=== PATIENT | male | born 1940 | race Caucasian/White ===

== ENCOUNTER → 2019-10-21 | Outpatient (CLI) | payer OTHER ==
[~2019-10-21] MED LIST: AMLODIPINE BESY10 MG PO; CALCIUM500 MG PO; COZAAR100 MG PO; FLONASE 0.05%50 MCG NARES; HYDROCHLOROTHIA25 M2 PO; MELATONIN10 M3 PO; OMEGA 3 1,0001 EACH PO; POTASSIUM99 M1 PO; TRAMADOL 50 MG50 MG PO; VITAMIN D3100 MCG PO
== END ==
LOC: LAB 12:02
PROVIDERS: ATTEND Student in an Organized Health Care Education/Training Program
DX: Z01.812 Encounter for preprocedural laboratory examination (principal); Z11.59 Encounter for screening for other viral diseases

== ENCOUNTER 2019-10-26 06:55 | Inpatient (IN) | payer OTHER ==
[2019-10-20 11:58] LABS: HEMATOCRIT 45.2 % (42.0-52.0); HEMOGLOBIN 15.2 gm/dL (14.0-18.0); MCH 29.6 pg (26.0-34.0); MCHC 33.6 g/dL (28.0-37.0); MCV 88.3 fL (80.0-100.0); RBC 5.12 mil/uL (4.50-6.00)
[2019-10-20 11:59] LABS: URINE BILIRUBIN NEGATIVE (Negative); URINE BLOOD NEGATIVE (Negative); URINE CLARITY CLEAR; URINE COLOR YELLOW; URINE GLUCOSE-RANDOM* NEGATIVE (Negative); URINE KETONES NEGATIVE (Negative); URINE LEUKOCYTES-REFLEX NEGATIVE (Negative); URINE NITRITE-REFLEX NEGATIVE (Negative); URINE PROTEIN (DIPSTICK) NEGATIVE (Negative); URINE UROBILINOGEN 0.2 E.U./dl (0.2-1.0)
[2019-10-20 12:13] LABS: ALBUMIN 4.2 g/dL (3.4-5.0); CALCIUM 9.3 mg/dL (8.5-10.1); CREATININE 1.3 mg/dL (0.7-1.3); POTASSIUM 4.1 mmol/L (3.5-5.1)
[2019-10-20 12:20] LABS: PROTIME 10.3 Seconds (9.3-11.4)
[~2019-10-26] VITALS: Ht 172.7 cm; Wt 97.1 kg
[2019-10-26 08:01] VITALS: BP 189/74
--- NOTE | 2019-10-26 14:42 | NUR ---
PATIENT ADMITTED FROM OR WITH RIGHT TOTAL KNEE REPLACEMENT, IGOR DRESSING, SCD'S, THIGH HIGH BEKA HOSE, ICE PACK TO RIGHT HIP AREA. PATIENT DENIES NAUSEA, REGULAR DIET ORDERED FOR LUNCH. C/O PAIN WITH RIGHT HIP AREA, MORPHINE 2 MG IV GIVEN, 12/18. PATIENT HAS LEFT FOREARM IV IN PLACE, PATIENT STARTED ON IV FLUIDS AT 100CC/HR. O2 AT 2 LITERS/NC IN PLACE, PAGTIETN RECEIVED 1 PRN BREATHING TREATMENT ORDERED PER DR. ZAIDI. ADMISSION DONE AND COMPLETED. REPORT GIVEN TO CARMEN/MELYSSA.
[2019-10-26 19:26] VITALS: BP 162/71
--- NOTE | 2019-10-27 02:37 | NUR ---
ASSUMED PT CARE AT 1900. PT IS A&OX4. REPORTING SEVERE PAIN. IV HAD GONE BAD SO WAS UNABLE TO GIVE THE MORPHINE RIGHT AWAY. PT REQUESTING THE BS FOR A BM, PAIN WAS UNBEARABLE, PT WAS DIZZY AND FELT FAINT. GOT HIM BACK IN BED, A NEW LINE WAS STARTED AND MORPHINE WAS GIVEN. PT ABLE TO RELAX AFTER TWO DOSES OF PAIN MEDS. RIGHT HIP DRESSING HAS SOME DRIED BLOOD. HEMOVAC OUTPUT DECREASING. ICE PACK IN PLACE. REQUESTING A BREAK FROM THE SCDS DUE TO THEM INTURRUPTING SLEEP. ATTEMPTING TO WEAN OFF OF O2. GOOD URINE OUTPUT W/ URINAL. PT HAS BEEN HAVING SOME DIFFICULTY SWALLOWING, HE STATES HIS THROAT IS SORE AND CAUSING THIS TROUBLE. GIVEN SOME ICE CREAM AND WARM TEA. THIS NURSE CRUSHED HIS PAIN PILL AND GAVE IT WITH APPLESAUCE. HAS NOT SLEPT MUCH ASIDE FROM OCCASIONALLY DOZING OFF. WILL CONTINUE TO MONITOR.
[2019-10-27 03:42] VITALS: BP 159/66
[2019-10-27 05:14] LABS: ABSOLUTE NEUTROPHILS 9.8 thou/uL (1.4-8.2); HEMATOCRIT 38.9 % (42.0-52.0); HEMOGLOBIN 12.9 gm/dL (14.0-18.0); LYMPHOCYTES 4.7 % (24.0-44.0); MCH 29.4 pg (26.0-34.0); MCHC 33.2 g/dL (28.0-37.0); MCV 88.5 fL (80.0-100.0); MONOCYTES 6.8 % (1.0-8.0); PLATELET COUNT 182 thou/uL (150-400); POLYS 88.5 % (36.0-66.0); RBC 4.39 mil/uL (4.50-6.00); RDW 13.8 % (10.5-14.5); WBC 11.1 thou/uL (4.0-11.0)
[2019-10-27 05:24] LABS: CALCIUM 8.6 mg/dL (8.5-10.1); CREATININE 1.1 mg/dL (0.7-1.3); MAGNESIUM 1.9 mg/dL (1.8-2.4); POTASSIUM 4.4 mmol/L (3.5-5.1)
[2019-10-27 07:20] VITALS: BP 158/70
[2019-10-27] MEDS ORDERED: COLACE100 MG PO (07:55)
[2019-10-27] MEDS ORDERED: MIRALAX17 GM PO (07:55)
[2019-10-27] MEDS ORDERED: XARELTO10 MG PO (07:55)
--- NOTE | 2019-10-27 08:17 | O ---
[facility] [place] [address] OPERATIVE REPORT Name: YAMILE RANGEL Room #: 439-P ADM IN M.R.#: [id number] Admission: 10/26/19 Attend Phys: Rayray Corrales MD Discharge: Date of : 42 Report #: [id number] THIS REPORT FOR: cc: TANVI - Family physician unknown TANVI - Family physician unknown Rayray Corrales MD ~ CC: Rayray TINAJERO unknown DATE OF SERVICE: 10/26/2019 PREOPERATIVE DIAGNOSIS: End-stage degenerative arthritis, right hip. POSTOPERATIVE DIAGNOSIS: End-stage degenerative arthritis, right hip. PROCEDURE: Right total hip arthroplasty. SURGEON: Rayray Corrales MD INDICATIONS: This 78-year-old gentleman is generally healthy, active and independent living with his at home. He notes progressive right hip pain with limited range of motion. He is advance to a cane or walker and has rather marked ongoing hip pain. Clinical exam and x-rays confirm moderately severe degenerative change with some flattening of the head and some cystic changes. The patient has decided to go ahead with right total hip arthroplasty. DESCRIPTION OF PROCEDURE: The patient was taken to the operating room where he was placed under general anesthesia. Prophylactic intravenous antibiotics were administered. He was turned to the left lateral decubitus position. The right hip, thigh and leg were meticulously prepped and draped. A slightly curving posterolateral skin incision was made centered over the greater trochanter. This was carried through fascia and muscle layers to expose the posterior aspect of the hip joint. The short external rotators and capsule were taken down and preserved and tagged with several #1 FiberWire sutures. The hip was dislocated posteriorly and marked degenerative change on the femoral head and acetabulum was noted. A femoral neck osteotomy was performed and the canal was prepared with reamers and hand broaches. The Johnson and Nephew hip system was utilized, a Synergy size 14 high offset stem seemed to fit most appropriately. The calcar was trimmed down to an appropriate level. The trial was removed and the acetabulum was visualized. The acetabulum was sequentially reamed, gradually advancing to a 50 mm reamer. A Johnson and Nephew size 50 StikTite shell with three holes was applied. This was inserted in alignment with his true acetabulum, placing this at about 45 degrees off vertical and 20 degrees of anteversion. It was impacted in place and seated nicely and appeared to be secure. In addition, 2 cancellous screws were placed through the apical holes engaging good periacetabular bone with excellent purchase adding to it [address] [address] OPERATIVE REPORT Name: YAMILE RANGEL Room #: 439-[facility] IN M.R.#: [id number] Admission: 10/26/19 Attend Phys: Rayray Corrales MD Discharge: Date of : 42 Report #: [id number] stability. A 32 mm liner was then inserted, positioning the 20-degree elevated rim at about the 9 o'clock posterior position. It also seated nicely and appeared to be secure. A trial reduction was performed and the size 14 stem with a high offset neck angle and a +4 mm neck length seemed to fit quite nicely. This resulted in satisfactory alignment, range of motion, stability and leg length. The trial was removed and the permanent Johnson and Nephew Synergy size 14 stem with a high offset neck angle was then inserted. This was impacted into position and seated nicely and placed at about 15-20 degrees of anteversion. A +4 mm neck length cobalt chrome head was then impacted onto the Cummings taper. It seated nicely and appeared to be secure. The hip was reduced and alignment, range of motion, stability and leg length were assessed and felt to be satisfactory. The capsule and short external rotators were then repaired back to bone using the #1 FiberWire sutures passed through several small drill holes in greater trochanter also adding to overall hip stability. A single Hemovac was then left in the wound exiting through a separate stab incision. The fascia was closed with multiple #1 Vicryl sutures. The adipose tissues and subcutaneous tissues were closed with 0 Monocryl. The skin was closed with skin cherise. Sterile dressing was applied. The patient was awakened and returned to the recovery room in satisfactory condition. <ELECTRONICALLY SIGNED> By: Rayray Corrales MD 10/27/19 0817 [id number] [id number] Rayray Corrales MD /nt
--- NOTE | 2019-10-27 08:35 | NUR ---
ASSESSMENT: CM REVIEWED CHART AND SPOKE WITH PATIENT. PT IS POST OP DAY 1 R THR. PT IS ALERT AND ORIENTED X4. PT REPORTS LIVING IN A HOUSE WITH HIS AND SON. PT REPORTS HAVING A COUPLE OF STEPS TO ENTER AND NO STEPS HE HAS TO USE ONCE INSIDE. PT STATES HE NORMALLY AMBULATES USING A CAN BUT REPORTS THAT THEY HAVE A WALKER WITH A SEAT AND A FWW AT HOME. PT REPORTS THAT HE HAS A GRAB BAR IN THE SHOWER AND A SHOWER CHAIR. PT REPORTS HE HAD HH IN THE PAST BUT UNSURE WHAT THE AGENCY WAS. PT IS TO WORK WITH PHYSICAL THERAPY AND CM WILL CONTINUE TO FOLLOW TO ASSIST WITH ANY NEEDS. PT IS POSSIBLE DISCHARGE HOME IN 1-2DAYS.
--- NOTE | 2019-10-27 10:55 | NUR ---
Assumed care of pt at 0700. Pt a&ox4. Dressing on rt hip clean and intact. Pt worked with physical therapy and OT. Pain controlled with prn pain meds. Hemovac drain removed. Fall precautions in place. Will continue to monitor.
[2019-10-27 17:17] VITALS: BP 123/60
[2019-10-27 20:05] VITALS: BP 136/84
--- NOTE | 2019-10-28 03:56 | NUR ---
ASSUMED PT CARE AT APPROX 1900.PT ALERT AND COPERATIVE WITH CARE.DRSG ON HIS R HIP C/D/I.ICE PACK BEKA HOSE IN PLACE.PT REF TO HAVE HIS SCD ON AT HS.PT C/O PAIN ON HIS R HIP, MANAGED WITH MED.URINALAT BEDSIDE WITH GOOD OUT PUT.PT RESTING ON HIS BED AT THIS TIME.PT PASSING GAS NO BM YET.FALL PRECAUTIONS IN PLACE,CALL LIGHT WITHIN REACH.
[2019-10-28 04:25] VITALS: BP 149/74
[2019-10-28 06:15] LABS: HEMATOCRIT 36.5 % (42.0-52.0); HEMOGLOBIN 12.3 gm/dL (14.0-18.0); MCHC 33.6 g/dL (28.0-37.0); MCV 89.3 fL (80.0-100.0); RBC 4.09 mil/uL (4.50-6.00); WBC 8.9 thou/uL (4.0-11.0)
[2019-10-28 07:56] VITALS: BP 129/63
[2019-10-28 12:30] VITALS: BP 127/63
--- NOTE | 2019-10-28 12:32 | NUR ---
Assumed care of pt at 0700. Pt a&ox4. Up SBA with walker and gait-belt. Pain controlled with prn pain meds. Dressing intact. BEKA hose and SCDs in place. Pt will discharge to home. Call light within reach.
--- NOTE | 2019-10-28 13:58 | NUR ---
ON-GOING ASSESSMENT: CM REVIEWED CHART. PT HAS ORDERS TO DISCHARGE HOME TODAY WITH NO NEEDS. PT DID WELL WITH PHYSICAL THERAPY. CASE CLOSED.
--- NOTE | 2019-10-29 10:41 | D ---
[facility] [place] [address] DISCHARGE SUMMARY Name: YAMILE RANGEL Room #: 439-P [facility] IN M.R.#: [id number] Admission: 10/26/19 Attend Phys: Rayray Corrales MD Discharge: 10/28/19 Date of : 42 Report #: [id number] THIS REPORT FOR: cc: TANVI - Family physician unknown FAM - Family physician unknown Rayray Corrales MD ~ THIS REPORT FOR: //name// CC: Rayray TINAJERO unknown DATE OF SERVICE: 10/28/2019 FINAL DIAGNOSIS: End-stage degenerative arthritis, right hip. OPERATION PROCEDURES: Right total hip arthroplasty. HISTORY OF PRESENT ILLNESS: This active, fit, independent 78-year-old gentleman presents with progressive right hip pain. Clinical exam and x-rays confirm rather severe degenerative arthritis. He and his family understand treatment options and have elected to go ahead with right total hip replacement. HOSPITAL COURSE: The patient was admitted and taken to the operating room on 10/26/2019. He underwent right total hip replacement, which he tolerated well. Postoperatively, his course has been largely unremarkable. He was able to rapidly advance her regular diet and was removed from IV fluids after 24 hours. He continued on oral analgesics and did quite nicely. He made good progress with physical therapy and seems today to be safe with ambulation using a walker. He has been up and down steps and is independent in his room and in the bathroom. The dressing is clean and dry. He seems to be making excellent progress and feels he is safe to return home with family assistance, where his and his son will be helping him. He feels he will probably not require any outpatient physical therapy as he is concerned about the COVID situation and prefers to continue activity with family assistance at home. DISCHARGE MEDICATIONS: Include Xarelto 10 mg daily, hydrocodone 5 mg q.4-6 hours p.r.n. for severe pain, tramadol 50 mg q.4-6 hours p.r.n. for moderate pain, Cozaar 100 mg daily, amlodipine 10 mg daily, hydrochlorothiazide 25 mg daily, potassium gluconate 99 mg daily, melatonin 10 mg at bedtime p.r.n., Flonase nasal spray twice daily. DISCHARGE INSTRUCTIONS: He will continue gradually advancing activity using his walker and family assistance for safety. I have asked him to call me should [address] [address] DISCHARGE SUMMARY Name: YAMILE RANGEL Room #: 439-P [facility] IN M.R.#: [id number] Admission: 10/26/19 Attend Phys: Rayray Corrales MD Discharge: 10/28/19 Date of : 42 Report #: [id number] there be any problems or questions. We will plan to see him back in the office in 1 week for routine followup and in 2 weeks for suture removal. <ELECTRONICALLY SIGNED> By: Rayray Corrales MD 10/29/19 1041 1216 1234 Rayray Corrales MD /piper
== END 2019-10-28 14:30 | disposition home or self-care (01) | DRG 470 ==
LOC: TBA 06:55 → 4S 06:55 → PRE 08:25 → 4S 11:43 → PRE 12:32 → 4S 10-28 14:30
PROVIDERS: Nurse Practitioner; ADMIT Orthopaedic Surgery; ATTEND Orthopaedic Surgery
PROC: 0SR90JZ Replacement of Right Hip Joint with Synthetic Substitute, Open Approach (ICD-10-PCS; principal; 2019-10-26)
DX: M16.11 Unilateral primary osteoarthritis, right hip (principal); I25.10 Atherosclerotic heart disease of native coronary artery without angina pectoris; I10 Essential (primary) hypertension; Z96.652 Presence of left artificial knee joint; Z91.09 Other allergy status, other than to drugs and biological substances; Z95.5 Presence of coronary angioplasty implant and graft; Z79.01 Long term (current) use of anticoagulants; Z79.899 Other long term (current) drug therapy; Z79.891 Long term (current) use of opiate analgesic; Z88.8 Allergy status to other drugs, medicaments and biological substances; Z87.442 Personal history of urinary calculi; Z85.46 Personal history of malignant neoplasm of prostate
CPT/HCPCS: 10102; 50010; 50101; 50149; 50382; 50414; 51412; 51771; 53367; 56521; 56525; 56530; 57095; 57103; 62110; 62900; 70005